=== PATIENT | male | born 1955 | race Caucasian/White ===

== ENCOUNTER 2017-09-11 11:37 | Emergency (ER) | payer BC ==
[2017-09-11] MEDS ORDERED: Sodium Chloride 0.9% 10 ML Syringe FLUSH PRN (12:03)
[2017-09-11] MEDS ORDERED: Alum Hydrox/Mag Hydrox/Simeth 30 ML, Lidocaine 2% 15 ML PO ONE ×2 (12:04)
[2017-09-11] MEDS ORDERED: Aspirin 81 MG Tab.Chew PO ONE (12:04)
[2017-09-11] MEDS ORDERED: Famotidine 20 MG/2 ML SDV IVPUSH ONE (12:05)
--- NOTE | 2017-09-11 12:12 | EDM.PDOC ---
ED HPI GENERAL MEDICAL PROBLEM - General Chief Complaint: Chest Pain Stated Complaint: CHEST PAIN/DIZZY Time Seen by Provider: 09/11/17 11:55 Source of Information: Reports: Patient History Limitations: Reports: No Limitations - History of Present Illness INITIAL COMMENTS - FREE TEXT/NARRATIVE: Patient is a 62-year-old male with a history of acid reflux on Prilosec who presents to the ED complaining of multiple episodes of dizziness since . States on he had the sensation the room was spinning. Broke out in a cold sweat and became very clammy with ambulation. Had a few episodes of emesis and diarrhea. States on Wednesday the symptoms had somewhat resolved after resting the prior day. He felt well enough to go. Candle. While doing so he had episodes again of lightheadedness with a stomach ache. He has a history of acid reflux and states he feels as if the acid reflux has worsened. He's had a poor appetite. Has been drinking fluids okay. As of this morning developed some pain to the right anterior chest. He states it feels like the heartburn is trapped. He does burp and offers some relief. He has no cardiac history although there is a strong family history of first degree relatives with extensive heart issues. With admission to the ED pain is currently a 1 out of 10. He did take his Prilosec this morning. Admits to drinking Coke and eating pork sausage prior to worsening of symptoms this morning. Denies any fever, shortness of breath, nausea/vomiting, back pain, dizziness with admission to the ED, increased edema to his lower extremities, pain with urination, pain to his lower extremities, or any additional plans. Right Chest Pain Score (Numeric/FACES): 2 - Related Data Allergies Allergy/AdvReac Type Severity Reaction Status Date / Time No Known Allergies Allergy Verified 09/11/17 11:51 Home Meds: Home Meds Meclizine HCl 25 mg PO BID PRN #20 tab.chew 09/11/17 [Rx] Omeprazole 20 mg PO DAILY 09/11/17 [History] Past Medical History - Past Health History Medical/Surgical History: Denies Medical/Surgical History Gastrointestinal History: Reports: GERD Musculoskeletal History: Reports: Other (See Below) Other Musculoskeletal History: repair mcl to the right knee ED ROS GENERAL - Review of Systems Review Of Systems: ROS reveals no pertinent complaints other than HPI. ED EXAM, GENERAL - Physical Exam Exam: See Below Exam Limited By: No Limitations General Appearance: Alert, WD/WN, No Apparent Distress Ears: Normal External Exam, Normal Canal, Hearing Grossly Normal, Normal TMs Nose: Normal Inspection, Normal Mucosa, No Blood Throat/Mouth: Normal Inspection, Normal Oropharynx, Normal Voice, No Airway Compromise Head: Atraumatic, Normocephalic Neck: Normal Inspection, Supple, Non-Tender, Full Range of Motion Respiratory/Chest: No Respiratory Distress, Lungs Clear, Normal Breath Sounds, No Accessory Muscle Use, Chest Non-Tender Cardiovascular: Normal Peripheral Pulses, Regular Rate, Rhythm, No Murmur Peripheral Pulses: 3+: Posterior Tibial (L), Posterior Tibial (R), 4+: Radial (L ), Radial (R) GI/Abdominal: Normal Bowel Sounds, Soft, No Organomegaly, No Distention, Tender (mild epigastric tenderness) Extremities: Normal Inspection, Normal Range of Motion, Non-Tender, No Pedal Edema, Normal Capillary Refill Neurological: Alert, Oriented, CN II-XII Intact, Normal Cognition, No Motor/ Sensory Deficits Psychiatric: Normal Affect, Normal Mood Skin Exam: Warm, Dry, Normal Color, No Rash Course - Vital Signs Last Recorded V/S: Last Vital Signs Temp 98.0 F 09/11/17 11:45 Pulse 58 L 09/11/17 11:45 Resp 20 09/11/17 11:45 BP 160/82 H 09/11/17 11:45 Pulse Ox 99 09/11/17 11:45 - Orders/Labs/Meds Orders: Active Orders 24 hr Category Date Time Status EKG Documentation Completion [RC] ASDIRECTED Care 09/11/17 11:44 Active Peripheral IV Care [RC] . DIRECTED Care 09/11/17 12:04 Active Peripheral IV Insertion Adult [OM.PC] Stat Oth 09/11/17 12:04 Ordered EKG 12 Lead [EK] Stat Ther 09/11/17 11:44 Ordered Labs: Laboratory Tests 09/11/17 09/11/17 09/11/17 Range/Units 12:06 12:06 12:06 WBC 6.36 (4.23-9.07) K/mm3 RBC 5.20 (4.63-6.08) M/mm3 Hgb 15.3 (13.7-17.5) gm/L Hct 46.1 (40.1-51.0) % MCV 88.7 (79.0-92.2) fl MCH 29.4 (25.7-32.2) pg MCHC 33.2 (32.2-35.5) g/dl RDW Std Deviation 44.0 H (35.1-43.9) fL Plt Count 222 (163-337) K/mm3 MPV 12.0 (9.4-12.3) fl Neutrophils % (Manual) 49 (40-60) % Band Neutrophils % 1 (0-10) % Lymphocytes % (Manual) 45 H (20-40) % Atypical Lymphs % 0 % Monocytes % (Manual) 4 (2-10) % Eosinophils % (Manual) 1 (0.8-7.0) % Basophils % (Manual) 0 L (0.2-1.2) Platelet Estimate Adequate RBC Morph Comment Normal PT 10.0 (8.0-13.0) SECONDS INR 0.94 APTT 29 (22-36) SECONDS D-Dimer, Quantitative 0.55 (0.19-0.59) mg/L Sodium 143 (136-145) mEq/L Potassium 4.3 (3.5-5.1) mEq/L Chloride 106 (98-107) mEq/L Carbon Dioxide 28 (21-32) mEq/L Anion Gap 13.3 (5-15) BUN 14 (7-18) mg/dL Creatinine 1.1 (0.7-1.3) mg/dL Est Cr Clr Drug Dosing 72.82 mL/min Estimated GFR (MDRD) > 60 (>60) mL/min BUN/Creatinine Ratio 12.7 L (14-18) Glucose 108 (80-115) mg/dL Calcium 9.0 (8.5-10.1) mg/dL Total Bilirubin 0.5 (0.2-1.0) mg/dL AST 19 (15-37) U/L ALT 33 (16-63) U/L Alkaline Phosphatase 75 (46-116) U/L Troponin I < 0.017 (0.00-0.056) ng/mL Total Protein 7.1 (6.4-8.2) g/dl Albumin 3.8 (3.4-5.0) g/dl Globulin 3.3 gm/dL Albumin/Globulin Ratio 1.2 (1-2) Lipase 154 (73-393) U/L 09/11/17 Range/Units 15:05 WBC (4.23-9.07) K/mm3 RBC (4.63-6.08) M/mm3 Hgb (13.7-17.5) gm/L Hct (40.1-51.0) % MCV (79.0-92.2) fl MCH (25.7-32.2) pg MCHC (32.2-35.5) g/dl RDW Std Deviation (35.1-43.9) fL Plt Count (163-337) K/mm3 MPV (9.4-12.3) fl Neutrophils % (Manual) (40-60) % Band Neutrophils % (0-10) % Lymphocytes % (Manual) (20-40) % Atypical Lymphs % % Monocytes % (Manual) (2-10) % Eosinophils % (Manual) (0.8-7.0) % Basophils % (Manual) (0.2-1.2) Platelet Estimate RBC Morph Comment PT (8.0-13.0) SECONDS INR APTT (22-36) SECONDS D-Dimer, Quantitative (0.19-0.59) mg/L Sodium (136-145) mEq/L Potassium (3.5-5.1) mEq/L Chloride (98-107) mEq/L Carbon Dioxide (21-32) mEq/L Anion Gap (5-15) BUN (7-18) mg/dL Creatinine (0.7-1.3) mg/dL Est Cr Clr Drug Dosing mL/min Estimated GFR (MDRD) (>60) mL/min BUN/Creatinine Ratio (14-18) Glucose (80-115) mg/dL Calcium (8.5-10.1) mg/dL Total Bilirubin (0.2-1.0) mg/dL AST (15-37) U/L ALT (16-63) U/L Alkaline Phosphatase (46-116) U/L Troponin I < 0.017 (0.00-0.056) ng/mL Total Protein (6.4-8.2) g/dl Albumin (3.4-5.0) g/dl Globulin gm/dL Albumin/Globulin Ratio (1-2) Lipase (73-393) U/L Meds: Medications Discontinued Medications Generic Name Dose Route Start Last Admin Trade Name Freq PRN Reason Stop Dose Admin Acetaminophen 975 mg 09/11/17 13:57 09/11/17 14:05 Tylenol PO 09/11/17 13:58 975 mg NOW ONE Administration Aspirin 324 mg 09/11/17 12:04 09/11/17 12:18 Aspirin PO 09/11/17 12:05 324 mg ONETIME ONE Administration Al Hydroxide/Mg Hydroxide 30 0 ml 09/11/17 12:04 09/11/17 12:18 ml/ Lidocaine HCl 15 ml PO 09/11/17 12:05 45 ml ONETIME ONE Administration Famotidine 40 mg 09/11/17 12:05 09/11/17 12:17 Pepcid IVPUSH 09/11/17 12:06 40 mg ONETIME ONE Administration Sodium Chloride 1,000 mls @ 125 mls/hr 09/11/17 12:15 09/11/17 12:17 Normal Saline IV 125 mls/hr ASDIRECTED MELISSA Administration Sodium Chloride 10 ml 09/11/17 12:03 09/11/17 12:18 Saline Flush FLUSH 10 ml ASDIRECTED PRN Administration Keep Vein Open - Re-Assessments/Exams Free Text/Narrative Re-Assessment/Exam: IV established with NS 125ml/hr, asa 324mg, pepcid 40mg IVP, and GI cocktail. Initial labs and studies will include: CBC, C14, CRP, lipase, DDimer, Coag Studies, troponin, EKG, and CXR. Patients pain is 1/10 to the right chest. Patient has epigastric pain with palpation. No additional pain with palpation. CXR reviewed with Dr. Yang. Likely cardiomegaly. Poor inspiratory effort. No acute findings. Final interpretation is pending. EKG: Sinus bradycardia rate of 58 with no ischemic changes noted. Labs reviewed: CBC essentially normal. D-dimer 0.55. Chemistry is normal. Troponin less than 0.017. Lipase 154. 2nd troponin ordered for 1506. 1317 Patient has no pain to epigastric region or right chest with GI cocktail. Awaiting for 2nd troponin. c/o mild headache ordered tylenol 975mg PO. 09/11/17 16:02 2nd troponin negative. Patient has no symptoms. Will discharge patient home. Departure - Departure Time of Disposition: 16:02 Disposition: Home, Self-Care 01 Condition: Good Clinical Impression: GERD (gastroesophageal reflux disease) Qualifiers: Esophagitis presence: esophagitis presence not specified Qualified Code(s): K21.9 - Gastro-esophageal reflux disease without esophagitis BPV (benign positional vertigo) Qualifiers: Laterality: unspecified laterality Qualified Code(s): H81.10 - Benign paroxysmal vertigo, unspecified ear Prescriptions: Meclizine HCl 25 mg PO BID PRN #20 tab.chew PRN Reason: Dizziness Instructions: Food Choices for Gastroesophageal Reflux Disease, Adult, Easy-to- Read, Food Choices for Gastroesophageal Reflux Disease, Adult, Nonspecific Chest Pain, [id number], Gastroesophageal Reflux Disease, Adult, [id number] Referrals: PCP,None [Primary Care Provider] - Forms: ED Department Discharge Additional Instructions: As discussed chronic enzymes were negative. EKG was negative as well. He had relief of epigastric and chest discomfort with the GI cocktail. This is suggesting that discomfort may be associated with GERD. Will have you take Prilosec 40 mg every day for the next 2 weeks. May use Zantac 150 mg twice a day during this time as well. Maalox intermittently for relief during the day. In relation to the dizziness I believe related to BPV. Thus will have you take meclizine 25mg po twice a day when occurs. No driving while taking the meclizine. Followupwith PCP this coming week for reevaluation. Return to the E.D. if you develop any new or worsening symptoms. - My Orders Last 24 Hours: My Active Orders 09/11/17 11:44 EKG Documentation Completion [RC] ASDIRECTED EKG 12 Lead [EK] Stat 09/11/17 12:04 Peripheral IV Care [RC] . DIRECTED Peripheral IV Insertion Adult [OM.PC] Stat - Assessment/Plan Last 24 Hours: My Active Orders 09/11/17 11:44 EKG Documentation Completion [RC] ASDIRECTED EKG 12 Lead [EK] Stat 09/11/17 12:04 Peripheral IV Care [RC] . DIRECTED Peripheral IV Insertion Adult [OM.PC] Stat
[2017-09-11] MEDS ORDERED: Sodium Chloride 0.9% 1,000 ML IV SCH (12:15)
[2017-09-11] MEDS ORDERED: Acetaminophen 325 MG Tab PO ONE (13:57)
--- NOTE | 2017-09-11 18:34 | CR ---
Chest: Portable view of the chest was obtained. Comparison: No prior chest x-ray. Heart size and mediastinum are within normal limits for portable technique. Lungs are clear. Bony structures are grossly intact. Impression: 1. Nothing acute is identified on portable chest x-ray. Diagnostic code #1
== END 2017-09-11 16:15 | disposition home or self-care (01) ==
LOC: JD.ED 11:37
DX: H81.10 Benign paroxysmal vertigo, unspecified ear (principal); K21.9 Gastro-esophageal reflux disease without esophagitis; Z79.899 Other long term (current) drug therapy
CPT/HCPCS: 36415; 71045; 80053; 83690; 84484; 85025; 85379; 85610; 85730; 93005; 96361; 96374; 99285; A9270; J7040; J7050; 99283